=== PATIENT | female | born 1995 | race African-American/Black ===

== ENCOUNTER 2021-09-01 02:43 | Emergency (ER) | payer BC ==
[~2021-09-01] VITALS: Ht 167.6 cm; Wt 110.7 kg
[2021-09-01] MEDS ORDERED: SODIUM CHLORIDE 0.9% 1000ML 1,000 ML IV STA (03:02)
[2021-09-01] MEDS ORDERED: ONDANSETRON HCL INJ 2MG/ML 2ML 2 MG/ML VIAL IV STA (03:02)
[2021-09-01] MEDS ORDERED: KETOROLAC TROMETHAMINE 30 MG/ML VIAL IV STA ×2 (03:02→04:12)
[2021-09-01] MEDS ORDERED: IOPAMIDOL 370 MG/ML 100 ML INFUS..BTL INJ ONE (03:23)
[2021-09-01] MEDS ORDERED: ONDANSETRON HCL INJ 2MG/ML 2ML 2 MG/ML VIAL ONE (03:29)
[2021-09-01] MEDS ORDERED: SODIUM CHLORIDE 0.9% 1000ML 1,000 ML ONE (03:30)
[2021-09-01] MEDS ORDERED: KETOROLAC TROMETHAMINE 30 MG/ML VIAL ONE (03:30)
[2021-09-01] MEDS ORDERED: FAMOTIDINE 20 MG/2 ML VIAL IV STA (04:12)
[2021-09-01] MEDS ORDERED: ONDANSETRON ODT4 MG PO (04:13)
[2021-09-01] MEDS ORDERED: ACETAMINOPHEN-1 EAC4 PO (04:13)
[2021-09-01 04:24] VITALS: BP 126/87
== END 2021-09-01 04:24 | disposition home or self-care (01) ==
LOC: FSED 02:56
DX: R10.33 Periumbilical pain (principal); R11.2 Nausea with vomiting, unspecified
CPT/HCPCS: 74177; 80048; 80076; 81003; 81025; 85025; 96374; 96375; 96376; 99284; J1885; J2405; J7030; Q9967